=== PATIENT | female | born 1965 | race Caucasian/White ===

== ENCOUNTER 2017-05-23 14:24 | Emergency (ER) | payer OTHER ==
[~2017-05-23] VITALS: Ht 167.6 cm; Wt 61.2 kg
[2017-05-23 14:24] VITALS: BP 149/82
[2017-05-23] MEDS ORDERED: predniSONE 20 MG TABLET PO ONE (15:30)
[2017-05-23] MEDS ORDERED: KETOROLAC TROMETHAMINE INJ 60 MG/2 ML VIAL IM ONE (15:30)
[2017-05-23] MEDS ORDERED: predniSONE 20 MG TABLET ONE (15:32)
[2017-05-23] MEDS ORDERED: KETOROLAC TROMETHAMINE INJ 30 MG/ML VIAL ONE (15:32)
== END 2017-05-23 16:20 | disposition home or self-care (01) ==
LOC: ER 14:31
DX: M25.521 Pain in right elbow (principal); M77.9 Enthesopathy, unspecified; F10.10 Alcohol abuse, uncomplicated; K21.9 Gastro-esophageal reflux disease without esophagitis; Z88.5 Allergy status to narcotic agent; Z90.89 Acquired absence of other organs
CPT/HCPCS: 96372; 99283; A4606; J1885; J7512; Z7610